=== PATIENT | male | born 1985 | race American Indian/Alaskan Native ===

== ENCOUNTER 2016-10-09 01:55 | Emergency (ER) | payer SELFPAY ==
[2016-10-09 08:10] LABS: Bilirubin,Urine NEG (Negative); Blood,Urine NEG (Negative); Ketones,Urine NEG (Negative); Leukocyte Esterase,Urine MOD (Negative); Mucus,Urine 3+ /HPF; Nitrite,Urine NEG (Negative)
[2016-10-09 08:50] VITALS: BP 112/78
--- NOTE | 2016-10-09 12:22 | Emergency Department Report ---
HPI - General Chief Complaint: Urogenital-Male Time Seen by Provider: 10/09/16 11:24 - HPI HPI: 31-year-old male presents today with right testicular swelling 5 days with white milky discharge. Positive for history of unprotected sex. Denies history of STDs. Patient denies testicular pain at rest but is positive for pain upon palpation. Denies burning upon urination, blood in urine, increased urinary frequency or urgency, fever, chills, nausea, vomiting, chest pain, shortness of breath, abdominal pain. ED Past Medical Hx - Past Medical History Previous Medical History?: No - Surgical History Past Surgical History?: No - Social History Smoking Status: Unknown if ever smoked - Medications Home Medications: Home Medications Medication Instructions Recorded Confirmed Last Taken Type Levofloxacin [Levaquin TAB] 500 mg PO QDAY #10 tablet 10/09/16 Unknown Rx ED Review of Systems ROS: Stated complaint: POSS UTI/GROIN PAIN Other details as noted in HPI Constitutional: denies: chills, fever, malaise Eyes: denies: eye pain ENT: denies: ear pain, throat pain, congestion Respiratory: denies: cough, shortness of breath, wheezing Cardiovascular: denies: chest pain, palpitations Endocrine: no symptoms reported Gastrointestinal: denies: abdominal pain, nausea, vomiting Genitourinary: discharge, testicular pain. denies: urgency, dysuria, frequency , hematuria Neurological: denies: headache, weakness Physical Exam - Physical Exam Vital Signs: Vital Signs 10/09/16 10/09/16 02:00 08:43 Temperature 98.7 F 97.5 F L Pulse Rate 79 63 Respiratory 20 16 Rate Blood Pressure 118/77 112/78 O2 Sat by Pulse 98 99 Oximetry Physical Exam: GENERAL: The patient is well-developed and well-nourished. Patient is in NAD. HEAD: Normocephalic. Atraumatic. CHEST/LUNGS: Clear to auscultation throughout. HEART/CARDIOVASCULAR: Regular rate and rhythm. No murmurs, rubs or gallops. ABDOMEN: Abdomen is soft, nontender. No guarding or rebound tenderness. Negative for CVA tenderness bilaterally. GENITAL: Normal external genitalia. Moderate swelling with induration noted of right testicle. Positive for minimal tenderness to palpation upon deep palpation. No bleeding or discharge noted. EXTREMITIES: Peripheral pulses intact. Capillary refill less than 2 seconds. NEURO: Alert and oriented x 3. Normal gait. ED Course Vital Signs 10/09/16 10/09/16 02:00 08:43 Temperature 98.7 F 97.5 F L Pulse Rate 79 63 Respiratory 20 16 Rate Blood Pressure 118/77 112/78 O2 Sat by Pulse 98 99 Oximetry ED Medical Decision Making - Lab Data Vital Signs 10/09/16 10/09/16 02:00 08:43 Temperature 98.7 F 97.5 F L Pulse Rate 79 63 Respiratory 20 16 Rate Blood Pressure 118/77 112/78 O2 Sat by Pulse 98 99 Oximetry - Radiology Data Radiology results: report reviewed ULTRASOUND TESTICULAR DOPPLER COMPLETE History: Testicular pain and swelling. Technique: Trans-scrotal ultrasound with spectral doppler interrogation. Findings: The right testicle measures 4.1 x 3.0 x 2.9 cm. The left testicle measures 4.0 x 2.1 x 2.9 cm. The right testicle is slightly heterogeneous with subtle increased flow on color Doppler. The right epididymis is enlarged and edematous with increased flow on color Doppler. The left epididymis is normal. A moderate right hydrocele is identified. Spectral Doppler interrogation depicts arterial flow to both testes. IMPRESSION: Right epididymoorchitis. Moderate right hydrocele. - Medical Decision Making 31-year-old male presents today with a white milky discharge and right testicular swelling 5 days. His urinalysis reveals elevated leukocyte esterase and urine WBC. A testicular ultrasound reveals right epididymoorchitis and moderate sized right hydrocele. Patient has been given ceftriaxone and azithromycin today. Patient is in no acute distress at this time. He will be discharged home and is encouraged to follow up with a primary care provider. He will be sent home on levofloxacin and is encouraged to return to the emergency room for any worsening symptoms. Critical care attestation.: If time is entered above; I have spent that time in minutes in the direct care of this critically ill patient, excluding procedure time. ED Disposition Clinical Impression: Epididymo-orchitis Hydrocele Qualifiers: Hydrocele type: unspecified Qualified Code(s): N43.3 - Hydrocele, unspecified Disposition: DISCHARGED TO HOME OR SELFCARE Is pt being admited?: No Does the pt Need Aspirin: No Condition: Stable Instructions: Epididymitis (ED), Hydrocele (ED), Gonococcal Urethritis (ED), Chlamydia Infection (ED) Additional Instructions: Follow-up with primary care provider. Return to the emergency department if symptoms worsen. Prescriptions: Levofloxacin [Levaquin TAB] 500 mg PO QDAY #10 tablet Referrals: PRIMARY CARE, [Primary Care Provider] - 3-5 Days [facility] [Outside] - 3-5 Days Forms: STI Treatment and Prevention, Work/School Release Form(ED) Time of Disposition: 13:07
[2016-10-09] MEDS ORDERED: ROCEPHIN IM ONE (12:44)
[2016-10-09] MEDS ORDERED: XYLOCAINE 1% MPF 5 mL INFILTRATI ONE (12:44)
[2016-10-09] MEDS ORDERED: ZITHROMAX PO ONE (12:44)
== END 2016-10-09 13:10 | disposition home or self-care (01) ==
LOC: ED 01:55
DX: N43.3 Hydrocele, unspecified (principal); N45.3 Epididymo-orchitis
CPT/HCPCS: 81001; 87591; 93975; 96372; 99284; J0696